=== PATIENT | female | born 1965 | race Caucasian/White ===

== ENCOUNTER 2025-01-01 14:06 | Outpatient (AMB) | payer OTHER, SELFPAY ==
--- NOTE | 2025-01-01 14:09 | MHC.OFFVIS ---
Vital Signs 01/01/25 14:11 Height 5 ft 3 in Weight 179 lb 2 oz BMI 31.7 BP 120/74 Blood Pressure Location Lt brachial Position Sitting Intake Visit Reasons: Arthritis Intake Note: Patient presents follow up arthritis. Allergies Penicillins Allergy (Mild, Verified 01/01/25 14:13) Rash HPI HPI Arthritis: Details: Left shoulder pain. She saw urgent care who told her that she had AC joint arthritis on x-RAY. She is going to PT with last session next week without relief in controlling pain. K taping helped from PT. She continues to have pain in her hands. She has difficulty with opening jars. She has increased pain when using the computer. 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 Review of Systems Const All systems reviewed & are unremarkable except as noted in HPI and below Physical Exam Vital Signs: Last Vital Signs BP 120/74 01/01/25 14:11 BMI result Body Mass Index 31.7 Const Other: General: Comfortable CVS: RRR Respiratory: clear to auscultation bilaterally. Good respiratory effort Skin: No lesions seen MSK: Tender to palpate left anterior shoulder and along AC joint. Pain with abduction, adduction and internal rotation. Range of motion of left shoulders full. Heberden nodes present. No synovitis of joints in hands. 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 Assessment & Plan Assessment & Plan (1) Shoulder pain, left: Comment: Chronic, likely due to AC joint arthritis with possible rotator cuff tendinitis contributing. Failed PT. We discussed next steps in management. She agreed to try NSAID. If at follow-up NSAID is not beneficial, we will consider cortisone injection. Code(s): M25.512 - Pain in left shoulder Category: Medical Qualifiers: Chronicity: chronic Qualified Code(s): M25.512 - Pain in left shoulder; G89.29 - Other chronic pain Plan: baseline labs ordered Start diclofenac 50 mg twice a day with food Continue physical therapy exercises daily. She will inquire with PT to learn how to K tape shoulder for use at home Return to clinic in 3 months (2) Osteoarthritis, hand: Comment: Tristan, erosive. Pain is uncontrolled. History: Completed physical therapy. Failed naproxen, diclofenac gel and Celebrex 08/2020-03/2021. Meloxicam worsened GERD. Some benefit on sulindac 03/2021-01/2023. She received cortisone injection to right 2nd DIPJ 11/2022 and 08/2023. Code(s): M19.049 - Primary osteoarthritis, unspecified hand Category: Medical Qualifiers: Osteoarthritis type: primary Laterality: bilateral Qualified Code(s): M19.041 - Primary osteoarthritis, right hand; M19.042 - Primary osteoarthritis, left hand Plan: I will start NSAID diclofenac 50 mg b.i.d. baseline labs ordered Return to clinic in 3 months Orders: Orders Creatinine 01/01/25 M19.049 - Primary osteoarthritis, unspecified hand, M25.512 - Pain in left shoulder Alanine Aminotransferase 01/01/25 M19.049 - Primary osteoarthritis, unspecified hand, M25.512 - Pain in left shoulder Aspartate Amino Transferase 01/01/25 M19.049 - Primary osteoarthritis, unspecified hand, M25.512 - Pain in left shoulder Complete Blood Count Auto Diff 01/01/25 M19.049 - Primary osteoarthritis, unspecified hand, M25.512 - Pain in left shoulder Medications: New diclofenac potassium Take with food 50 mg PO BID 60 tabs 2RF Coding Level of Care Code Est Pt Level 4 (40079) Complex EM visit Add On G2211 Diagnoses Chronic left shoulder pain M25.512; G89.29 Chronicity: chronic Primary osteoarthritis of both hands M19.041; M19.042 Osteoarthritis type: primary Laterality: bilateral Time Spent (min) 20
[2025-01-01 14:11] VITALS: BP 120/74; BMI 31.7
== END 2025-01-01 14:43 | disposition home or self-care (01) ==
PROVIDERS: PCP Family Medicine; Visit Provider Internal Medicine Rheumatology
DX: M25.512 Pain in left shoulder (principal); G89.29 Other chronic pain; M19.041 Primary osteoarthritis, right hand; M19.042 Primary osteoarthritis, left hand
CPT/HCPCS: 99214

== ENCOUNTER → 2025-01-01 14:06 | Outpatient (BNVA) | payer OTHER, SELFPAY | PROVIDERS: PCP Family Medicine; Visit Provider Internal Medicine Rheumatology ==

== ENCOUNTER 2025-04-08 14:35 | Outpatient (REF) | payer OTHER, SELFPAY ==
[2025-04-08 17:48] LABS: MANUAL DIFF FLAG NO
[2025-04-08 18:07] LABS: Alanine Aminotransferase 21 U/L (0-31); Aspartate Amino Transferase 26 U/L (5-31); Estimated Glomerular Filt Rate > 60
[2025-04-08 18:17] LABS: Basophils Percent Auto 0.4 % (0-2); Eosinophils Absolute Auto 0.1 X10*3/uL (0.0-0.4); Eosinophils Percent Auto 1.5 % (0-4); Hematocrit 36.4 % (37.0-47.0); Hemoglobin 11.8 g/dl (12.0-16.0); Imm Gran Abs Auto 0.02 X10*3/uL (0.00-0.03); Imm Gran Pct Auto 0.3 % (0.0-0.4); Lymphocytes Absolute Auto 2.6 X10*3/uL (1.2-4.9); Lymphocytes Percent Auto 38.2 % (20-40); Mean Corpuscular HGB Conc 32.4 g/dl (31.0-35.0); Mean Corpuscular Hemoglobin 28.7 pg (27.0-33.0); Mean Corpuscular Volume 88.6 fL (80.0-98.0); Mean Platelet Volume 11.5 fL (9.4-12.3); Monocytes Absolute Auto 0.5 X10*3/uL (0.1-1.2); Monocytes Percent Auto 6.9 % (2-11); Neutrophils Absolute Auto 3.6 x10*3/uL (2.0-8.3); Neutrophils Percent Auto 52.7 % (45-73); Platelet Count 274 X10*3/uL (160-400); Red Blood Count 4.11 X10*6/uL (4.20-5.50); Red Cell Distribution Width 13.6 % (11.0-16.0); White Blood Count 6.9 X10*3/uL (4.8-10.8)
== END 2025-04-08 14:36 | disposition home or self-care (01) ==
LOC: HO.HKASLDS 14:35
PROVIDERS: PCP Family Medicine; Visit Provider Internal Medicine Rheumatology
DX: M25.512 Pain in left shoulder (principal); M19.041 Primary osteoarthritis, right hand; M19.042 Primary osteoarthritis, left hand
CPT/HCPCS: 36415; 82565; 84450; 84460; 85025

== ENCOUNTER 2025-04-08 14:35 | Outpatient (AMB) | payer OTHER, SELFPAY ==
[2025-04-08 14:38] VITALS: BP 150/80; PULSE 74; O2SAT 97; BMI 27.5
--- NOTE | 2025-04-08 14:38 | MHC.OFFVIS ---
Vital Signs 04/08/25 14:38 Height 5 ft 3 in Weight 154 lb 15.759 oz BMI 27.5 BP 150/80 H Blood Pressure Location Lt brachial Position Sitting Pulse 74 Pulse Source Pulse Oximeter Pulse Oximetry (%) 97 Oxygen Delivery Method Room Air Intake Visit Reasons: Arthritis Intake Note: Patient presents follow up arthritis. Allergies Penicillins Allergy (Mild, Verified 04/08/25 14:41) Rash HPI HPI Arthritis: Details: Pain has resolved in left shoulder. She does not have any hand pain. She is compliant with diclofenac. She goes to the gym 3 times a week and continues to do exercises learned from PT in the past. She has lost weight with set bound. Physical Exam Vital Signs: Last Vital Signs Pulse 74 04/08/25 14:38 BP 150/80 H 04/08/25 14:38 Pulse Ox 97 04/08/25 14:38 Oxygen Delivery Method Room Air 04/08/25 14:38 BMI result Body Mass Index 27.5 Const Other: General: Comfortable CVS: RRR Respiratory: clear to auscultation bilaterally. Good respiratory effort Skin: No lesions seen MSK: No tenderness on palpation of hands or shoulders. Normal range of motion of bilateral shoulders. Heberden nodes present. No synovitis of joints in hands. Weak customer liaison strength. Assessment & Plan Assessment & Plan (1) Shoulder pain, left: Comment: Resolved with diclofenac. Likely due to AC joint arthritis with possible rotator cuff tendinitis contributing. Failed PT. Code(s): M25.512 - Pain in left shoulder Category: Medical Qualifiers: Chronicity: chronic Qualified Code(s): M25.512 - Pain in left shoulder; G89.29 - Other chronic pain Plan: Continue PT exercises at home She will reduce diclofenac to 50 mg daily for 1-2 weeks then discontinue Requesting reports of shoulder x-rays patient had at [facility] before her December 2024 appointment Return to clinic in 6 months (2) Osteoarthritis, hand: Comment: Tristan, erosive. Pain is controlled on diclofenac 50 mg b.i.d.. History: Completed physical therapy. Failed naproxen, diclofenac gel and Celebrex 08/2020-03/2021. Meloxicam worsened GERD. Some benefit on sulindac 03/2021-01/2023. She received cortisone injection to right 2nd DIPJ 11/2022 and 08/2023. Diclofenac 12/2024- Code(s): M19.049 - Primary osteoarthritis, unspecified hand Category: Medical Qualifiers: Osteoarthritis type: primary Laterality: bilateral Qualified Code(s): M19.041 - Primary osteoarthritis, right hand; M19.042 - Primary osteoarthritis, left hand Plan: Reduced diclofenac from 50 mg b.i.d. to daily for 1-2 weeks then discontinue Return to clinic in 6 months Coding Level of Care Code Est Pt Level 3 (55719) Complex EM visit Add On G2211 Diagnoses Chronic left shoulder pain M25.512; G89.29 Chronicity: chronic Primary osteoarthritis of both hands M19.041; M19.042 Osteoarthritis type: primary Laterality: bilateral
== END 2025-04-08 15:00 | disposition home or self-care (01) ==
LOC: HO.RHES 14:36
PROVIDERS: PCP Family Medicine; Visit Provider Internal Medicine Rheumatology
DX: M25.512 Pain in left shoulder (principal); G89.29 Other chronic pain; M19.041 Primary osteoarthritis, right hand; M19.042 Primary osteoarthritis, left hand
CPT/HCPCS: 99213

== ENCOUNTER 2025-10-07 14:40 | Outpatient (REF) | payer OTHER, SELFPAY ==
[2025-10-07 18:33] LABS: Alanine Aminotransferase 21 U/L (0-31); Aspartate Amino Transferase 24 U/L (5-31); Estimated Glomerular Filt Rate > 60
== END 2025-10-07 14:41 | disposition home or self-care (01) ==
LOC: HO.HKASLDS 14:40
PROVIDERS: PCP Family Medicine; Visit Provider Internal Medicine Rheumatology
DX: M19.041 Primary osteoarthritis, right hand (principal); M19.042 Primary osteoarthritis, left hand; Z79.1 Long term (current) use of non-steroidal anti-inflammatories (NSAID)
CPT/HCPCS: 36415; 82565; 84450; 84460

== ENCOUNTER 2025-10-07 14:40 | Outpatient (AMB) | payer OTHER, SELFPAY ==
--- NOTE | 2025-10-07 14:44 | MHC.OFFVIS ---
Vital Signs 10/07/25 14:45 Height 5 ft 3 in Weight 144 lb 6.444 oz BMI 25.6 BP 120/80 Blood Pressure Location Lt brachial Position Sitting Intake Visit Reasons: 6 months Intake Note: Patient presents follow up arthritis. Accompanied by: Self / Same As Patient Allergies Penicillins Allergy (Mild, Verified 04/08/25 14:41) Rash HPI HPI 6 months: Details: She has been having increased joint pain in her hands with the change in weather. She is using Tylenol 500 mg once or twice a day. She has benefit with Tylenol but feels that diclofenac gel was better managing her pain. She has not been compliant with home exercise program for hand strengthening. No new joint swelling. Physical Exam Vital Signs: Last Vital Signs BP 120/80 10/07/25 14:45 BMI result Body Mass Index 25.6 Const Other: General: Comfortable Skin: No lesions seen MSK: No tenderness on palpation of hands. Heberden nodes present. No synovitis of joints in hands. Weak logistics planning engineer strength. Assessment & Plan Assessment & Plan (1) Osteoarthritis, hand: Comment: Tristan, erosive. She is having recent exacerbation of hand pain due to change in weather. She is tolerating pain with Tylenol 500 mg daily or b.i.d. she had better control on diclofenac. We discussed the benefit of turmeric in reducing hand pain from osteoarthritis. History: Completed physical therapy. Failed naproxen, diclofenac gel and Celebrex 08/2020-03/2021. Meloxicam worsened GERD. Some benefit on sulindac 03/2021-01/2023. She received cortisone injection to right 2nd DIPJ 11/2022 and 08/2023. Diclofenac 12/2024-03/2025 effective. Code(s): M19.049 - Primary osteoarthritis, unspecified hand Category: Medical Qualifiers: Osteoarthritis type: primary Laterality: bilateral Qualified Code(s): M19.041 - Primary osteoarthritis, right hand; M19.042 - Primary osteoarthritis, left hand Plan: She will use diclofenac 50 mg daily or b.i.d. PRN joint pain She will start turmeric/ curcumin capsule maximum dose a 1000 mg daily Restart home exercise program. Exercises printed for patient. I have asked her to obtain hand strengthening balls from [employer] Return to clinic in 6 months or sooner if needed Orders: Orders Alanine Aminotransferase Today Z79.1 - terminal operator (current) use of non-steroidal anti-inflammatories (NSAID) Aspartate Amino Transferase Today Z79.1 - [facility] (current) use of non-steroidal anti-inflammatories (NSAID) Creatinine Today Z79.1 - terminal operator (current) use of non-steroidal anti-inflammatories (NSAID) Medications: Changed From diclofenac potassium Take with food. Try to take 50 mg daily when pain is under control then after a few weeks if pain is remains controlled discontinue. 50 mg PO BID 60 tabs 2RF To diclofenac potassium Take with food. 50 mg PO BID 60 tabs 5RF Coding Level of Care Code Est Pt Level 3 (01446) Diagnoses Primary osteoarthritis of both hands M19.041; M19.042 Osteoarthritis type: primary Laterality: bilateral
[2025-10-07 14:45] VITALS: BP 120/80; BMI 25.6
== END 2025-10-07 15:35 | disposition home or self-care (01) ==
LOC: HO.RHES 14:41
PROVIDERS: PCP Family Medicine; Visit Provider Internal Medicine Rheumatology
DX: M19.041 Primary osteoarthritis, right hand (principal); M19.042 Primary osteoarthritis, left hand
CPT/HCPCS: 99213